=== PATIENT | female | born 1995 | race American Indian/Alaskan Native ===

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

== ENCOUNTER 2017-03-04 19:26 | Emergency (ER) | payer OTHER ==
[2017-03-04 19:36] VITALS: BP 108/73; PULSE 87; TEMP 98.5; BMI 15.6
[2017-03-04] MEDS ORDERED: SODIUM CHLORIDE 1,000 ML IV STA (20:09)
[2017-03-04] MEDS ORDERED: ONDANSETRON 4 MG/2 ML VIAL IVPUSH ONE (20:09)
[2017-03-04] MEDS ORDERED: ONDANSETRON 4 MG/2 ML VIAL ONE (20:12)
--- NOTE | 2017-03-04 20:30 | PDOC ---
History of Present Illness <Sabine Hernandez - Last Filed: 03/04/17 23:39> - General History Source: Patient Exam Limitations: No Limitations - History of Present Illness Initial Comments: 03/04/17 20:13 21F with pmh of ichtyosis presents with 2-3 episodes of vomiting since 3pm today. No sick contacts, didn't eat anything usual. Denies abdominal pain, headaches, painful urination or bowel movements. <Domo Tello - Last Filed: 03/05/17 01:08> - General Chief Complaint: Nausea/Vomiting Stated Complaint: VOMITING Time Seen by Provider: 03/04/17 19:59 Past History <Sabine Hernandez - Last Filed: 03/04/17 23:39> - Past Medical History COPD: No Thyroid Disease: No - Immunization History Immunization Up to Date: No - Suicide/Smoking/Psychosocial Hx Smoking History: Never smoked Have you smoked in the past 12 months: No Information on smoking cessation initiated: No Hx Alcohol Use: No Drug/Substance Use Hx: No Substance Use Type: None <Domo Tello - Last Filed: 03/05/17 01:08> - Past Medical History Allergies/Adverse Reactions: Allergies Allergy/AdvReac Type Severity Reaction Status Date / Time No Known Allergies Allergy Verified 03/04/17 19:34 Home Medications: Ambulatory Orders NK [No Known Home Medication] 03/04/17 Review of Systems - Review of Systems Able to Perform ROS?: Yes Is the patient limited Singaporean proficient: No Constitutional: Yes: Loss of Appetite. No: Symptoms Reported HEENTM: No: Symptoms Reported Respiratory: No: Symptoms reported, Hemoptysis ABD/GI: Yes: Nausea, Vomiting : No: Symptoms Reported Musculoskeletal: No: Symptoms Reported Integumentary: No: Symptoms Reported Neurological: No: Symptoms reported All Other Systems: Reviewed and Negative <Domo Tello - Last Filed: 03/05/17 01:08> *Physical Exam - Vital Signs Last Vital Signs Temp Pulse Resp BP Pulse Ox 98.5 F 87 18 108/73 100 03/04/17 19:35 03/04/17 19:35 03/04/17 19:35 03/04/17 19:35 03/04/17 19:35 <Sabine Hernandez - Last Filed: 03/04/17 23:39> - Vital Signs Last Vital Signs Temp Pulse Resp BP Pulse Ox 98.5 F 87 18 108/73 100 03/04/17 19:35 03/04/17 19:35 03/04/17 19:35 03/04/17 19:35 03/04/17 19:35 - Physical Exam General Appearance: Yes: Nourished, Mild Distress, Thin HEENT: positive: EOMI, ZE, Normal ENT Inspection, Other (dry scaly skin over face neck) Respiratory/Chest: positive: Lungs Clear, Normal Breath Sounds. negative: Chest Tender, Respiratory Distress Cardiovascular: positive: Regular Rhythm, Regular Rate, S1, S2 Gastrointestinal/Abdominal: positive: Normal Bowel Sounds, Flat, Soft. negative : Tender Integumentary: positive: Dry, Other (scaly) Neurologic: positive: Fully Oriented, Alert, Normal Mood/Affect, Motor Strength 5/5 <Domo Tello - Last Filed: 03/05/17 01:08> ED Treatment Course - LABORATORY CBC & Chemistry Diagram: 03/04/17 22:30 03/04/17 20:30 - ADDITIONAL ORDERS Additional order review: Laboratory Results 03/04/17 20:30 Sodium 143 Potassium 3.2 L Chloride 116 H Carbon Dioxide 22 Anion Gap 5 L BUN 10 Creatinine 0.4 L Creat Clearance w eGFR > 60 Random Glucose 93 Calcium 6.5 L* Total Bilirubin 0.2 D AST 13 L ALT 22 Alkaline Phosphatase 71 Total Protein 5.3 L Albumin 2.9 L 03/04/17 20:30 RBC 2.42 L D MCV 86.7 MCHC 32.5 RDW 14.2 MPV 8.3 Neutrophils % 72.6 Lymphocytes % 19.3 Monocytes % 5.6 Eosinophils % 2.0 Basophils % 0.5 - RADIOLOGY Radiology Studies Ordered: Category Date Time Status CHEST PA & LAT [RAD] Stat Radiology 03/04/17 20:55 Ordered - Medications Given in the ED: ED Medications Discontinued Medications Generic Name Dose Route Start Last Admin Trade Name Freq PRN Reason Stop Dose Admin Calcium Carbonate 500 mg 03/04/17 21:45 03/04/17 22:09 Calcium Carb Oral Suspension - PO 03/04/17 21:46 500 mg NOW ONE Administration Sodium Chloride 1,000 mls @ 1,000 mls/hr 03/04/17 20:09 03/04/17 20:29 Normal Saline - IV 03/04/17 21:08 1,000 mls/hr ASDIR STA Administration Magnesium Sulfate 2 gm 03/04/17 21:43 03/04/17 22:09 Magnesium Sulfate IVPB 03/04/17 21:44 2 gm ONCE ONE Administration Ondansetron HCl 4 mg 03/04/17 20:09 03/04/17 20:30 Zofran Injection IVPUSH 03/04/17 20:10 4 mg ONCE ONE Administration Potassium Chloride 40 meq 03/04/17 21:43 03/04/17 22:09 K-Dur - PO 03/04/17 21:44 40 meq ONCE ONE Administration <Sabine Hernandez - Last Filed: 03/04/17 23:39> - LABORATORY CBC & Chemistry Diagram: 03/04/17 22:30 03/04/17 20:30 <Domo Tello - Last Filed: 03/05/17 01:08> Medical Decision Making - Medical Decision Making 03/04/17 20:57 hmg 6.8. Added a guaiac, type and screen 03/05/17 00:30 flu swab cxr pending. 03/05/17 00:54 cxr is negative. 03/05/17 01:02 Flu negative patient ok to dc <Domo Tello - Last Filed: 03/05/17 01:08> *DC/Admit/Observation/Transfer - Discharge Dispostion Admit: Yes <Sabine Hernandez - Last Filed: 03/04/17 23:39> - Discharge Dispostion Admit: No <Domo Tello - Last Filed: 03/05/17 01:08> Diagnosis at time of Disposition: Viral gastroenteritis - Discharge Dispostion Condition at time of disposition: Guarded - Referrals Referrals: Michelle Hickman MD [Primary Care Provider] - - Patient Instructions Printed Discharge Instructions: DI for Vomiting -- Adult Additional Instructions: Please come back to the Er for any new, worsening or concerning symptoms. Follow up with your primary provider within the next 3 days. - Post Discharge Activity Forms/Work/School Notes: Parent(s) Back to Work Note
[2017-03-04 20:47] LABS: BASO % 0.5 % (0-2.0); LYMPH % 19.3 % (8-40); MCH 28.2 pg (25.7-33.7); MCHC 32.5 g/dl (32.0-36.0); MEAN CELL VOLUME 86.7 fl (80-96); MEAN PLT VOLUME 8.3 fl (7.5-11.1); MONO % 5.6 % (3.8-10.2); NEUT % 72.6 % (42.8-82.8); PLATELET COUNT 154 K/MM3 (134-434); RBC 2.42 M/mm3 (3.60-5.2); RDW 14.2 % (11.6-15.6); WHITE BLOOD COUNT 6.2 K/mm3 (4.0-10.0)
[2017-03-04 21:21] LABS: ALBUMIN 2.9 g/dl (3.4-5.0); ANION GAP 5 (8-16); BILIRUBIN,TOTAL 0.2 mg/dL (0.2-1.0); BLOOD UREA NITROGEN 10 mg/dL (7-18); CHLORIDE 116 mmol/L (98-107); CO2 22 mmol/L (21-32); CREATININE 0.4 mg/dL (0.55-1.02); GLUCOSE,RANDOM 93 mg/dL (74-106); POTASSIUM 3.2 mmol/L (3.5-5.1); SGOT/AST 13 U/L (15-37); SGPT/ALT 22 U/L (12-78); SODIUM 143 mmol/L (136-145)
[2017-03-04 21:22] LABS: ALK PHOS 71 U/L (45-117); TOT PROT 5.3 g/dl (6.4-8.2)
--- NOTE | 2017-03-04 21:24 | PDOC ---
Attending Attestation - Resident Resident Name: Domo Tello - ED Attending Attestation I have performed the following: I have examined & evaluated the patient, The case was reviewed & discussed with the resident, I agree w/resident's findings & plan - HPI HPI: 03/04/17 21:24 Pt comes with fatigue and weakness and vital gastroenteritis. SHe is afebrile. She just finished her menses. - Physicial Exam PE: 03/04/17 21:50 Agree with resident exam 03/04/17 23:11 Pt is extememly thin. She states that whatever she eats she is always nauseous. Pt advised to follow with GI for food intolerances. - Medical Decision Making 03/04/17 21:50 Pt's initial CBC is 6.8 Admit to PMD Vick for blood transfusion and further workup. 03/04/17 23:12 2nd CBC is 11+ We figured out that the tech who cristina pt's first blood cbc cristina from an arm where saline was running. As a result CBC was erroneous. Pt is feeling better. We spoke to PMD and he will follow her in the office.
[2017-03-04 21:30] LABS: CALCIUM 6.5 mg/dL (8.5-10.1)
[2017-03-04] MEDS ORDERED: POTASSIUM CHLORIDE TABS 20 MEQ TABLET.ER (FP) PO ONE ×2 (21:43→21:56)
[2017-03-04] MEDS ORDERED: MAGNESIUM SULF 50% (8.12 MEQ/2 ML-1 GM VIAL) IVPB ONE (21:43)
[2017-03-04] MEDS ORDERED: CALCIUM CARBONATE SUSPENSION - 500 MG/5 ML ML PO ONE (21:45)
[2017-03-04] MEDS ORDERED: MAGNESIUM SULF 50% (8.12 MEQ/2 ML-1 GM VIAL) ONE (21:56)
[2017-03-04 22:45] LABS: BASO % 0.7 % (0-2.0); EOS % 1.5 % (0-4.5); LYMPH % 25.3 % (8-40); MCH 28.6 pg (25.7-33.7); MCHC 33.4 g/dl (32.0-36.0); MEAN CELL VOLUME 85.6 fl (80-96); MEAN PLT VOLUME 8.4 fl (7.5-11.1); MONO % 4.1 % (3.8-10.2); NEUT % 68.4 % (42.8-82.8); PLATELET COUNT 247 K/MM3 (134-434); RBC 3.95 M/mm3 (3.60-5.2); WHITE BLOOD COUNT 10.5 K/mm3 (4.0-10.0)
[2017-03-04 22:57] LABS: HEMATOCRIT 33.8 % (32.4-45.2); HEMOGLOBIN 11.3 GM/dL (10.7-15.3)
[2017-03-04 23:24] LABS: HEMOGLOBIN 6.8 GM/dL (10.7-15.3)
[2017-03-05 00:42] LABS: URINE APPEARANCE SLCLOUDY; URINE BILIRUBIN NEGATIVE (NEGATIVE); URINE BLOOD NEGATIVE (NEGATIVE); URINE COLOR LTYELLOW; URINE GLUCOSE (UA) NEGATIVE (NEGATIVE); URINE KETONE 1+ (NEGATIVE); URINE LEUK ESTERASE NEGATIVE (NEGATIVE); URINE NITRITE NEGATIVE (NEGATIVE); URINE PROTEIN NEGATIVE (NEGATIVE); URINE UROBILINOGEN NEGATIVE mg/dL (0.2-1.0)
[2017-03-05 01:01] LABS: HCG,QUALITATIVE URINE NEGATIVE
--- NOTE | 2017-03-05 08:54 | EKG ---
Test Reason : Blood Pressure : / mmHG Vent. Rate : 088 BPM Atrial Rate : 088 BPM P-R Int : 136 ms QRS Dur : 074 ms QT Int : 350 ms P-R-T Axes : 052 069 -23 degrees QTc Int : 423 ms NORMAL SINUS RHYTHM WITH SINUS ARRHYTHMIA LOW VOLTAGE QRS NONSPECIFIC T WAVE ABNORMALITY ABNORMAL ECG WHEN COMPARED WITH ECG OF 31-AUG-2016 09:52, NONSPECIFIC T WAVE ABNORMALITY, WORSE IN INFERIOR LEADS NONSPECIFIC T WAVE ABNORMALITY NOW EVIDENT IN ANTEROLATERAL LEADS Confirmed by Cory Diane ([id number]) on 03/05/2017 8:54:05 AM Referred By: Confirmed By:Cory Diane
== END 2017-03-05 01:11 | disposition home or self-care (01) ==
LOC: JER 19:26 → UNDOADMIN 22:48 → JERBED 22:48 → JER 03-05 01:11
PROC: 3E0337Z Introduction of Electrolytic and Water Balance Substance into Peripheral Vein, Percutaneous Approach (ICD-10-PCS; principal; 2017-03-04)
PROC: 3E033GC Introduction of Other Therapeutic Substance into Peripheral Vein, Percutaneous Approach (ICD-10-PCS; 2017-03-04)
PROC: 3E033GC Introduction of Other Therapeutic Substance into Peripheral Vein, Percutaneous Approach (ICD-10-PCS; 2017-03-04)
DX: A08.4 Viral intestinal infection, unspecified (principal); B97.89 Other viral agents as the cause of diseases classified elsewhere
CPT/HCPCS: 36415; 71046-TC-FY; 80053; 81003; 84703; 85025; 86850; 86900; 86901; 87804; 93005; 93010; 96361; 96374; 96375; 99283-25; J7030

== ENCOUNTER 2017-08-17 06:38 | Emergency (ER) | payer OTHER ==
--- NOTE | 2017-08-17 06:51 | PDOC ---
History of Present Illness - General Stated Complaint: VOMITING/DIARRHEA/STOMACH PAIN Time Seen by Provider: 08/17/17 06:50 - History of Present Illness Initial Comments: 08/17/17 07:08 The patient is a 21 year old female with a history of dysmenorrhea, anemia who presents for evaluation of nausea, vomiting and diarrhea. The patient notes that she usually has these symptoms at the start of her menstrual cycle and notes that she began her menstrual period 1 day ago. She has had multiple presentations to the ED in the past for these similar symptoms all occurring at the beginning of her menstrual cycle. She reports 1 episode of non-bilious, non -bloody vomiting with associated persistent nausea as well as 4 episodes of non- bloody diarrhea as well lower abdominal cramping similar to her prior presentations. She otherwise denies fevers, chills, SOB, chest pain, or changes with urination. Past History - Past Medical History Allergies/Adverse Reactions: Allergies Allergy/AdvReac Type Severity Reaction Status Date / Time No Known Allergies Allergy Verified 08/17/17 06:51 Home Medications: Ambulatory Orders NK [No Known Home Medication] 03/04/17 COPD: No Thyroid Disease: No - Immunization History Immunization Up to Date: No - Suicide/Smoking/Psychosocial Hx Smoking History: Never smoked Have you smoked in the past 12 months: No Hx Alcohol Use: No Drug/Substance Use Hx: No Substance Use Type: None Review of Systems - Review of Systems Comments:: 08/17/17 07:13 Constitutional: No fevers, chills, fatigue, malaise HEENT: No Rhinorrhea, nasal congestion, visual changes Cardiovascular: No chest pain, syncope, palpitations, lightheadedness Respiratory: No Cough, SOB, Hemoptysis, Gastrointestinal: Lower abdominal cramping, nausea, vomiting, diarrhea. No Constipation, Melena Genitourinary: No Dysuria, Frequency, Urgency, Hesitancy, Hematuria, Flank pain Musculoskeletal: No Myalgia, arthralgia Skin: No rashes, itching, bruising, pallor Neurologic: No Headache, Dizziness, Numbness, Weakness, or Tingling Psychiatric: No Hallucinations. No SI or HI *Physical Exam - Physical Exam Comments: 08/17/17 07:14 General Appearance: Nourished. No Apparent Distress HEENT: EOMI, ZE. No Pharyngeal Erythema, Tonsillar Exudate, Tonsillar Erythema Neck: No Cervical Lymphadenopathy Respiratory/Chest: Lungs Clear, Normal Breath Sounds. No Crackles, Rales, Rhonchi, Wheezing Cardiovascular: Regular Rhythm, Regular Rate. No Murmur, Gallops, Rubs Gastrointestinal/Abdominal: Normal Bowel Sounds, Soft. No Guarding, Rebound, Tenderness Musculoskeletal: No CVA Tenderness Extremity: Normal Capillary Refill Integumentary: Normal Color, Dry, Warm Neurologic: Fully Oriented, Alert, Normal Mood/Affect, Normal Response, ED Treatment Course - LABORATORY CBC & Chemistry Diagram: 08/17/17 08:05 08/17/17 08:05 Medical Decision Making - Medical Decision Making 08/17/17 07:14 The patient is a 21 year old female with a history of dysmenorrhea, anemia who presents for evaluation of nausea, vomiting and diarrhea. Differential includes but is not limited to: Dysmenorrhea, pancreatitis, uti, infectious, metabolic derangement. Given the patient's history and physical exam, it is likely her symptoms are due to her dysmenorrhea. However we will obtain a cbc, cmp, lipase, ua, urine preg to evaluate further for possible etiologies. We will treat with iv fluids, zofran, and mylanta in the meantime and continue to monitor and reassess while here in the ED. 08/17/17 10:00 CBC, cmp, lipase are unremarkable. The patient reports improvement in her symptoms and is requesting discharge. We discussed the results, plan, and return precautions with the patient who voiced understanding and is agreeable with the plan. *DC/Admit/Observation/Transfer Diagnosis at time of Disposition: Dysmenorrhea in adolescent - Discharge Dispostion Disposition: HOME Condition at time of disposition: Stable Decision to Admit order: No - Referrals Referrals: Michelle Hickman MD [Primary Care Provider] - Shantel Lira MD [Staff Physician] - - Patient Instructions Printed Discharge Instructions: DI for Dysmenorrhea Additional Instructions: Please return to the ER if you experience concerning or worsening symptoms including fevers or worsening abdominal pain. Your lab results were normal here in the ER. It is very important that you call to schedule a follow up appointment with our HYDROGRAPHER specialist Dr. Lira within 2-3 days to discuss your ER visit and further management of your symptoms. - Post Discharge Activity
[2017-08-17] MEDS ORDERED: SODIUM CHLORIDE 1,000 ML IV STA (07:01)
[2017-08-17] MEDS ORDERED: ONDANSETRON 4 MG/2 ML VIAL IVPUSH ONE (07:01)
[2017-08-17] MEDS ORDERED: MAG HYDROX/AL HYDROX/SIMETH 30 ML UNIT-DOSE CUP PO ONE (07:01)
[2017-08-17 07:06] VITALS: BMI 15.0
[2017-08-17] MEDS ORDERED: MAG HYDROX/AL HYDROX/SIMETH 30 ML UNIT-DOSE CUP ONE (07:44)
[2017-08-17] MEDS ORDERED: ONDANSETRON 4 MG/2 ML VIAL ONE (07:44)
--- NOTE | 2017-08-17 07:49 | PDOC ---
Attending Attestation - Resident Resident Name: Victor Manuel Townsend - ED Attending Attestation I have performed the following: I have examined & evaluated the patient, The case was reviewed & discussed with the resident, I agree w/resident's findings & plan, Exceptions are as noted - HPI HPI: 08/17/17 07:47 21 yo F wiht no pmhx here with c/o n/v/ d x 1 day associated with menstrual cycle. happens every cycle. no abd pain. no recent abx no mod factor. - Physicial Exam PE: 08/17/17 07:48 awake alert lungs clear heart rrr no mrg. abd soft nt nd. skin warm and dry. - Medical Decision Making 08/17/17 07:48 plan iv hydration, r/o prengnacy r/o electrolyte abnormality. hydrate. 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
[2017-08-17 08:11] LABS: BASO % 0.3 % (0-2.0); EOS % 4.1 % (0-4.5); HEMATOCRIT 38.5 % (32.4-45.2); HEMOGLOBIN 12.6 GM/dL (10.7-15.3); LYMPH % 19.9 % (8-40); MCH 28.5 pg (25.7-33.7); MCHC 32.8 g/dl (32.0-36.0); MEAN CELL VOLUME 86.9 fl (80-96); MEAN PLT VOLUME 8.8 fl (7.5-11.1); MONO % 6.8 % (3.8-10.2); NEUT % 68.9 % (42.8-82.8); PLATELET COUNT 270 K/MM3 (134-434); RBC 4.42 M/mm3 (3.60-5.2); WHITE BLOOD COUNT 13.8 K/mm3 (4.0-10.0)
[2017-08-17 08:41] LABS: ALBUMIN 3.8 g/dl (3.4-5.0); ANION GAP 9 (8-16); BILIRUBIN,TOTAL 0.2 mg/dL (0.2-1.0); BLOOD UREA NITROGEN 12 mg/dL (7-18); CALCIUM 8.9 mg/dL (8.5-10.1); CHLORIDE 106 mmol/L (98-107); CO2 24 mmol/L (21-32); CREATININE 0.6 mg/dL (0.55-1.02); GLUCOSE,RANDOM 79 mg/dL (74-106); LIPASE 73 U/L (73-393); POTASSIUM 3.7 mmol/L (3.5-5.1); SGOT/AST 19 U/L (15-37); SGPT/ALT 26 U/L (12-78); SODIUM 139 mmol/L (136-145); TOT PROT 7.7 g/dl (6.4-8.2)
[2017-08-17 08:42] LABS: ALK PHOS 89 U/L (45-117)
[2017-08-17 09:30] LABS: HCG,QUALITATIVE URINE NEGATIVE
[2017-08-17 09:51] VITALS: BP 101/69; PULSE 84; TEMP 97.6
[2017-08-17 10:05] LABS: URINE APPEARANCE SLCLOUDY; URINE BILIRUBIN NEGATIVE (<2.0 mg/dL); URINE COLOR YELLOW; URINE GLUCOSE (UA) NEGATIVE (NEGATIVE); URINE KETONE NEGATIVE (NEGATIVE); URINE LEUK ESTERASE NEGATIVE (NEGATIVE); URINE NITRITE NEGATIVE (NEGATIVE); URINE PROTEIN NEGATIVE (NEGATIVE); URINE UROBILINOGEN NEGATIVE mg/dL (0.2-1.0)
[2017-08-17 10:09] LABS: EPI CELLS RARE /HPF (FEW); URINE HYALINE CAST 2 /lpf; URINE MUCUS MANY
== END 2017-08-17 09:20 | disposition home or self-care (01) ==
LOC: JER 06:38
PROC: 3E033GC Introduction of Other Therapeutic Substance into Peripheral Vein, Percutaneous Approach (ICD-10-PCS; principal; 2017-08-17)
DX: N94.6 Dysmenorrhea, unspecified (principal)
CPT/HCPCS: 36415; 80053; 81003; 81015; 83690; 84703; 85025; 96374; 99283-25; J7030

== ENCOUNTER 2017-11-23 20:24 | Emergency (ER) | payer OTHER ==
[2017-11-23] MEDS ORDERED: SODIUM CHLORIDE 1,000 ML IV STA (20:32)
--- NOTE | 2017-11-23 20:32 | PDOC ---
Rapid Medical Evaluation Chief Complaint: Vomiting/Diarrhea Time Seen by Provider: 11/23/17 20:30 Medical Evaluation: Allergies Allergy/AdvReac Type Severity Reaction Status Date / Time No Known Allergies Allergy Verified 08/17/17 06:51 11/23/17 20:30 c/o nausea and diarrhea x 4 days. denies fever/ abdominal cramping. denies blood ins tool PE: patient alert ox3. A; vomiting and diarrhea P: labs patient to the ER for further management of care. 11/23/17 22:05 Discharge Disposition - Diagnosis Gastroenteritis - Referrals Referrals: Michelle Hickman MD [Primary Care Provider] - - Patient Instructions - Post Discharge Activity
[2017-11-23 20:33] VITALS: BP 113/82; PULSE 83; TEMP 98.5; BMI 16.6
[2017-11-23] MEDS ORDERED: ONDANSETRON 4 MG/2 ML VIAL IVPUSH ONE (20:45)
--- NOTE | 2017-11-23 20:51 | PDOC ---
Attending Attestation - HPI HPI: The patient is a 22 year old female with a history of dysmenorrhea, anemia, and depression,who presents to the ED with complaints of 4 days of loose stools. Patient reports 4 days of non bloody loose stools. She reports some associated nausea and heartburn when she eats. She states that she experiences some mild epigastric pain when she eats or has a BM and rates the pain 7/10. She states her epigastric pain is better when she doesn't eat or have a BM. LMP was 11/16/17 She denies fever, chills, vomiting, hematochezia. She denies recent sick contacts. Denies any abdominal surgeries. PCP: Michelle Hickman MD <Leidy Kyle - Last Filed: 11/23/17 21:24> - Resident Resident Name: Sa Chapisira - ED Attending Attestation I have performed the following: I have examined & evaluated the patient, The case was reviewed & discussed with the resident, I agree w/resident's findings & plan - HPI HPI: 11/23/17 21:43 Pt states that she has diarrhea. When I ask her whether she sees a GI doc, she refuses. States that she doesn't need one. Pt is refusing stool guiac in the ER. 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 Pt is extrememly thin, and when I explain to her that she must have an absorptive malnutrition, she tells me that she doesn't want to go to a GI doc. She tells me that she follows with Dr. Hickman, I tell her that I will call him, and she asks me not to. Pt is non compliant with advice to see GI; and refusing to get 2nd opinion of another ux interaction designer. When I ask her why she keeps coming for abd pain, she doesn't answer. She tells me that she saw her PLASTER HELPER for heavy menses. She cannot tell me the alexia of the PLASTER HELPER. I asked her what PLASTER HELPER recommended for her heavy bleeding, and she tells me OCPs. When I ask if she is on OCPs, she says that she is not. 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 She is knowledgeable, but has no insight into her many medical issues. - Physicial Exam PE: 11/23/17 21:52 Pt covered in eczema. Agree with resident exam. - Medical Decision Making 11/23/17 21:50 Pt will be hydrated and discharged with GI followup. I will call and leave a message with Dr. Hickman, or speak to him directly, regarding the poor care of this patient, given her refusal to comply with medical advice. Pt 's labs are normal at this time, and she is stable to go. Pt given the option to be admitted for GI eval, but she is refusing that. 11/23/17 22:06 Dr. Hickman has no idea who she is. He is willing to see her in the office if she wants to go. 11/23/17 22:08 Pt will be asked to follow with GI as an outpatient. <Sabine Hernandez - Last Filed: 11/23/17 22:08>
[2017-11-23] MEDS ORDERED: ONDANSETRON 4 MG/2 ML VIAL ONE (21:03)
[2017-11-23 21:19] LABS: EOS % 7.7 % (0-4.5); HEMATOCRIT 38.6 % (32.4-45.2); HEMOGLOBIN 12.8 GM/dL (10.7-15.3); LYMPH % 42.5 % (8-40); MCHC 33.2 g/dl (32.0-36.0); MEAN CELL VOLUME 87.3 fl (80-96); MEAN PLT VOLUME 8.6 fl (7.5-11.1); MONO % 8.5 % (3.8-10.2); NEUT % 40.3 % (42.8-82.8); PLATELET COUNT 279 K/MM3 (134-434); RBC 4.42 M/mm3 (3.60-5.2); RDW 13.2 % (11.6-15.6); WHITE BLOOD COUNT 9.2 K/mm3 (4.0-10.0)
[2017-11-23 21:41] LABS: ALBUMIN 4.2 g/dl (3.4-5.0); ALK PHOS 108 U/L (45-117); ANION GAP 6 MMOL/L (8-16); BILIRUBIN,TOTAL 0.2 mg/dL (0.2-1); BLOOD UREA NITROGEN 11 mg/dL (7-18); CALCIUM 9.9 mg/dL (8.5-10.1); CHLORIDE 105 mmol/L (98-107); CO2 28 mmol/L (21-32); CREATININE 0.6 mg/dL (0.55-1.3); GLUCOSE,RANDOM 90 mg/dL (74-106); LIPASE 94 U/L (73-393); POTASSIUM 4.5 mmol/L (3.5-5.1); SGOT/AST 23 U/L (15-37); SGPT/ALT 31 U/L (13-61); SODIUM 139 mmol/L (136-145)
--- NOTE | 2017-11-23 22:07 | PDOC ---
History of Present Illness - General Chief Complaint: Vomiting/Diarrhea Stated Complaint: DIARRHEA, NAUSEA Time Seen by Provider: 11/23/17 20:30 History Source: Patient Exam Limitations: No Limitations - History of Present Illness Initial Comments: 11/23/17 22:02 Pt is a 22yo f with PMH of ichtyosis, depression presenting to ED with complaints of diarrhea associated with nausea x4 days and heart burn. Pt says she did not eat anything out of the ordinary and nobody else is sick at home. Pt states she has had diarrhea like this in the past. Pt says today she had about 3 episodes of loose stool without blood. She is denying abdominal pain now but says that she gets epigastric pain when she eats and has bowel movements. Pt last meal was at 4pm today. She denies fever, vomiting, headache, weakness, vaginal bleeding/discharge, urinary symptoms. PCP: Vick PMH: depression, ichyosis PSH; none Meds: 3 depression medications (cannot recall name) Social: denies Allergies: denies Past History - Past Medical History Allergies/Adverse Reactions: Allergies Allergy/AdvReac Type Severity Reaction Status Date / Time No Known Allergies Allergy Verified 11/23/17 21:34 Home Medications: Ambulatory Orders Ondansetron [Ondansetron Odt] 4 mg PO TID #12 tab.rapdis 11/23/17 COPD: No Thyroid Disease: No Other medical history: Ichtiosis - Immunization History Immunization Up to Date: No - Suicide/Smoking/Psychosocial Hx Smoking History: Never smoked Have you smoked in the past 12 months: No Information on smoking cessation initiated: No Hx Alcohol Use: No Drug/Substance Use Hx: No Substance Use Type: None Review of Systems - Review of Systems Constitutional: No: Chills, Fever, Weakness HEENTM: No: Recent change in vision, Throat Pain Respiratory: No: Cough, Shortness of Breath Cardiac (ROS): Yes: Lightheadedness. No: Chest Pain, Palpitations, Syncope ABD/GI: Yes: See HPI, Diarrhea, Nausea, Abdominal cramping. No: Constipated, Vomiting : No: Burning, Frequency, Hematuria Musculoskeletal: No: Back Pain, Joint Pain, Muscle Pain Integumentary: Yes: Dryness Neurological: No: Headache, Numbness, Tingling, Tremors Psychiatric: Yes: Depression *Physical Exam - Vital Signs Last Vital Signs Temp Pulse Resp BP Pulse Ox 98.5 F 83 18 113/82 100 11/23/17 20:30 11/23/17 20:30 11/23/17 20:30 11/23/17 20:30 11/23/17 20:30 - Physical Exam General Appearance: Yes: Appropriately Dressed, Thin. No: Apparent Distress HEENT: positive: EOMI, ZE, Pharynx Normal, Hearing Grossly Normal, Other ( moist mucosal membranes). negative: Photophobia, Scleral Icterus (R), Scleral Icterus (L), Rhinorrhea Neck: positive: Trachea midline, Supple. negative: Lymphadenopathy (R), Lymphadenopathy (L) Respiratory/Chest: positive: Lungs Clear. negative: Crackles, Rales, Rhonchi, Stridor, Wheezing Cardiovascular: positive: Regular Rhythm, Regular Rate, S1, S2. negative: Edema , JVD, Murmur Vascular Pulses: Carotid (R): 2+, Carotid (L): 2+, Dorsalis-Pedis (R): 2+, Doralis-Pedis (L): 2+ Gastrointestinal/Abdominal: positive: Normal Bowel Sounds, Soft. negative: Distended, Guarding, Rebound, Tenderness, Mass Musculoskeletal: negative: CVA Tenderness Extremity: positive: Normal Capillary Refill Integumentary: positive: Normal Color, Dry, Warm, Other (dry peeling skin, thickened). negative: Swelling Neurologic: positive: peanut vendor II-XII NML intact, Fully Oriented, Alert, Normal Mood/ Affect, Normal Response, Motor Strength 5/5 ED Treatment Course - LABORATORY CBC & Chemistry Diagram: 11/23/17 21:00 11/23/17 21:00 - ADDITIONAL ORDERS Additional order review: Laboratory Results 11/23/17 21:00 Sodium 139 Potassium 4.5 Chloride 105 Carbon Dioxide 28 Anion Gap 6 L BUN 11 Creatinine 0.6 Creat Clearance w eGFR > 60 Random Glucose 90 Calcium 9.9 Total Bilirubin 0.2 AST 23 ALT 31 Alkaline Phosphatase 108 Total Protein 8.0 Albumin 4.2 Lipase 94 11/23/17 21:00 RBC 4.42 MCV 87.3 MCHC 33.2 RDW 13.2 MPV 8.6 Neutrophils % 40.3 L D Lymphocytes % 42.5 H D Monocytes % 8.5 Eosinophils % 7.7 H D Basophils % 1.0 D - Medications Given in the ED: ED Medications Discontinued Medications Generic Name Dose Route Start Last Admin Trade Name [place] PRN Reason Stop Dose Admin Sodium Chloride 1,000 mls @ 1,000 mls/hr 11/23/17 20:32 11/23/17 21:10 Normal Saline - IV 11/23/17 21:31 1,000 mls/hr ASDIR STA Administration Ondansetron HCl 4 mg 11/23/17 20:45 11/23/17 21:10 Zofran Injection IVPUSH 11/23/17 20:46 4 mg ONCE ONE Administration Medical Decision Making - Medical Decision Making 22yo f with PMH of icthyosis and depression presenting with nonbloody diarrhea. Vitals: wnl PE: benign DDx: infectious, malabsorption. 11/23/17 22:00 Pt refusing guaiac Pt given NS. Labs wnl, electrolytes normal. Pt feeling better, has pcp follow up and has GE follow up however has not gone. Pt advised to get evaluated. Hemodynamically stable. can be dc home. *DC/Admit/Observation/Transfer Diagnosis at time of Disposition: Diarrhea Qualifiers: Diarrhea type: unspecified type Qualified Code(s): R19.7 - Diarrhea, unspecified - Discharge Dispostion Disposition: HOME Condition at time of disposition: Good - Prescriptions Prescriptions: Ondansetron [Ondansetron Odt] 4 mg PO TID #12 tab.rapdis - Referrals Referrals: Michelle Hickman MD [Primary Care Provider] - Noemi Lambert MD [Staff Physician] - - Patient Instructions Printed Discharge Instructions: Diarrhea Additional Instructions: You were seen here today for evaluation of diarrhea. All of your tests were normal. I highly recommend you see Dr. Hickman and a government guard. Please give Dr. Lambert a call . I think it is very important that you get further evaluation so that you can get better. There is a prescription sent to your pharmacy for nausea. Take as directed. Stay hydrated and drink lots of water. Let your stomach rest, stick to fluids and soups then gradually move to solids. You can take Tums or Pepcid or Prilosec for heart burn. It is found near the pharmacy, take it as directed on the packaging. come back to the emergency room if: your pain gets worse, diarrhea gets worse, you start vomiting, you develop fever or if any new concerning symptom develops. Thank you - Post Discharge Activity
== END 2017-11-23 22:24 | disposition home or self-care (01) ==
LOC: JER 20:24
PROC: 3E033GC Introduction of Other Therapeutic Substance into Peripheral Vein, Percutaneous Approach (ICD-10-PCS; principal; 2017-11-23)
PROC: 3E0337Z Introduction of Electrolytic and Water Balance Substance into Peripheral Vein, Percutaneous Approach (ICD-10-PCS; 2017-11-23)
DX: R19.7 Diarrhea, unspecified (principal)
CPT/HCPCS: 36415; 80053; 83690; 84703; 85025; 96361; 96374; 99281-25; J7030

== ENCOUNTER 2018-05-15 21:39 | Emergency (ER) | payer OTHER ==
[2018-05-15 22:05] VITALS: BP 108/72; PULSE 94; TEMP 98; BMI 14.8
== END 2018-05-16 00:35 | disposition left against medical advice (07) ==
LOC: JER 21:39
DX: Z53.21 Procedure and treatment not carried out due to patient leaving prior to being seen by health care provider (principal)
CPT/HCPCS: 99281-25

== ENCOUNTER 2022-01-21 19:02 | Emergency (ER) | payer OTHER ==
[2022-01-21 19:43] VITALS: BP 100/69; PULSE 79; RESP 20; TEMP 98.2; BMI 15.6
[2022-01-21 21:22] LABS: BASO % 0.7 % (0-2.0); EOS % 4.2 % (0-4.5); HEMATOCRIT 38.7 % (32.4-45.2); HEMOGLOBIN 12.7 GM/dL (10.7-15.3); LYMPH % 47.7 % (8-40); MCH 28.3 pg (25.7-33.7); MCHC 32.9 g/dl (32.0-36.0); MEAN PLT VOLUME 8.4 fl (7.5-11.1); MONO % 7.9 % (3.8-10.2); NEUT % 39.5 % (42.8-82.8); PLATELET COUNT 270 10^3/uL (134-434); RDW 13.8 % (11.6-15.6); WHITE BLOOD COUNT 8.9 K/mm3 (4.0-10.0)
[2022-01-21 21:29] LABS: CHLORIDE 107 mmol/L (98-107); SODIUM 140 mmol/L (136-145)
[2022-01-21 21:32] LABS: ALBUMIN 4.1 g/dl (3.4-5.0); ANION GAP 10 MMOL/L (8-16); BLOOD UREA NITROGEN 11.4 mg/dL (7-18); CALCIUM 9.4 mg/dL (8.5-10.1); CO2 23 mmol/L (21-32); GLUCOSE,RANDOM 89 mg/dL (74-106); MAGNESIUM 2.1 mg/dL (1.8-2.4)
[2022-01-21 21:34] LABS: SGPT/ALT 25 U/L (13-61)
[2022-01-21 21:36] LABS: BILIRUBIN,TOTAL 0.2 mg/dL (0.2-1); CREATININE 0.6 mg/dL (0.55-1.3); SGOT/AST 21 U/L (15-37); TOT PROT 7.6 g/dl (6.4-8.2)
[2022-01-21] MEDS ORDERED: LACTATED RINGERS SOLUTION 1000 ML INFUS.BAG IV ONE (21:36)
[2022-01-21 21:37] LABS: ALK PHOS 87 U/L (45-117)
[2022-01-21] MEDS ORDERED: KETOROLAC TROMETHAMINE 15 MG/ML VIAL IVPUSH ONE (21:57)
[2022-01-21] MEDS ORDERED: KETOROLAC TROMETHAMINE 15 MG/ML VIAL ONE (22:07)
[2022-01-21 22:41] LABS: PH,URINE 6.5 (5.0-8.0); URINE APPEARANCE CLEAR; URINE BILIRUBIN NEGATIVE (NEGATIVE); URINE COLOR YELLOW; URINE GLUCOSE (UA) NEGATIVE (NEGATIVE); URINE KETONE TRACE (NEGATIVE); URINE LEUK ESTERASE NEGATIVE (NEGATIVE); URINE NITRITE NEGATIVE (NEGATIVE); URINE PROTEIN NEGATIVE (NEGATIVE); URINE UROBILINOGEN 0.2 mg/dL (0.2-1.0)
[2022-01-21 22:48] LABS: ERYTHROCYTE SEDIMENTATION RATE 5 mm/hr (0-20)
== END 2022-01-22 00:10 | disposition home or self-care (01) ==
LOC: JER 19:02
PROC: 3E0333Z Introduction of Anti-inflammatory into Peripheral Vein, Percutaneous Approach (ICD-10-PCS; principal; 2022-01-21)
DX: M79.10 Myalgia, unspecified site (principal)
CPT/HCPCS: 0241U-QW; 36415; 72125-TC; 80053; 81003; 82550; 83735; 84439; 84443; 84703; 85025; 85651; 86140; 99284-25

== ENCOUNTER 2023-03-03 12:53 | Emergency (ER) | payer OTHER ==
[2023-03-03] MEDS ORDERED: KETOROLAC TROMETHAMINE 30 MG/1 ML VIAL IVPUSH ONE (13:13)
[2023-03-03] MEDS ORDERED: METOCLOPRAMIDE HCL INJECTION 10 MG/2 ML VIAL IVPB ONE (13:13)
[2023-03-03] MEDS ORDERED: SODIUM CHLORIDE 1,000 ML IV STA (13:13)
[2023-03-03 13:15] VITALS: BP 106/70; PULSE 85; RESP 16; TEMP 98.2; BMI 16.7
[2023-03-03] MEDS ORDERED: KETOROLAC TROMETHAMINE 30 MG/1 ML VIAL ONE (13:28)
[2023-03-03] MEDS ORDERED: METOCLOPRAMIDE HCL INJECTION 10 MG/2 ML VIAL ONE (13:28)
[2023-03-03 13:35] LABS: HEMOGLOBIN 12.7 G/dL (10.7-15.3); MCH 29.3 pg (25.7-33.7); MCHC 33.4 g/dl (32.0-36.0); MEAN CELL VOLUME 87.7 fl (80-96); MEAN PLT VOLUME 9.1 fl (7.5-11.1); PLATELET COUNT 248.9 10^3/uL (134-434); RBC 4.33 10^6/uL (3.60-5.2); RDW 14.1 % (11.6-15.6)
[2023-03-03 13:54] LABS: ALBUMIN 4.6 g/dl (3.4-5.0); BILIRUBIN,TOTAL 0.4 mg/dl (0.2-1); CALCIUM 9.7 mg/dl (8.5-10.1); CREATININE 0.6 mg/dl (0.6-1.3); TOT PROT 7.4 g/dl (6.4-8.2)
[2023-03-03 14:12] LABS: PLATELET ESTIMATE ADEQUATE
== END 2023-03-03 14:42 | disposition home or self-care (01) ==
LOC: SUPCPDRO 12:53 → FER 12:53
PROC: 3E033NZ Introduction of Analgesics, Hypnotics, Sedatives into Peripheral Vein, Percutaneous Approach (ICD-10-PCS; principal; 2023-03-03)
PROC: 3E033GC Introduction of Other Therapeutic Substance into Peripheral Vein, Percutaneous Approach (ICD-10-PCS; 2023-03-03)
PROC: 3E0337Z Introduction of Electrolytic and Water Balance Substance into Peripheral Vein, Percutaneous Approach (ICD-10-PCS; 2023-03-03)
DX: R11.2 Nausea with vomiting, unspecified (principal); R51.9 Headache, unspecified
CPT/HCPCS: 36415; 80053; 81003; 81015; 85027; 99284-25